=== PATIENT | male | born 1965 | race African-American/Black ===

== ENCOUNTER 2019-03-16 00:43 | Emergency (ER) | payer OTHER | END 2019-03-16 05:02 | disposition home or self-care (01) | LOC: JER 00:43 ==

== ENCOUNTER 2019-11-21 04:48 | Day surgery (SDC) | payer OTHER ==
[2019-11-02 12:51] VITALS: BMI 33.5
[2019-11-21] MEDS ORDERED: LIDOCAINE 1%-EPI 1:100,000 30 ML MDV IJ ONE (09:16)
--- NOTE | 2019-11-21 09:21 | HP ---
Satellite [facility] - Chief Complaint Chief Complaint: right knee pain - Past Medical History Allergies/Adverse Reactions: Allergies Allergy/AdvReac Type Severity Reaction Status Date / Time No Known Allergies Allergy Verified 11/21/19 08:30 - Current Medications Current Medications: Home Medications Medication Instructions Recorded Allopurinol 300 mg PO DAILY 11/02/19 Oxycodone HCl/Acetaminophen 1 tab PO Q6H #15 tablet MDD 4 11/21/19 [Percocet 5-325 mg Tablet] Satellite Physical Exam - Physical Examination Vital Signs: Vital Signs Period Temp Pulse Resp BP Sys/Bro Pulse Ox Last 24 Hr 98.4 F 76 20 145/86 99 General Appearance: Well Nourished, Well Developed, Alert & Oriented x3 ENT: Clear Lung: Normal air movement Extremities: Other (right knee- + swelling, + ttp, decr rom, + mcmurrays, nvi) Neurological: Intact, Alert, Oriented Satellite Impression/Plan - Impression/Plan Impression: right knee internal derangement Operative Procedure: right knee arthroscopy Date to be Performed: 11/21/19
[2019-11-21] MEDS ORDERED: MIDAZOLAM HCL 2 MG/2 ML SINGLE DOSE VIAL ONE (09:46)
[2019-11-21] MEDS ORDERED: PROPOFOL 20 ML ONE (09:48)
[2019-11-21] MEDS ORDERED: BUPIVACAINE HCL/PF 0.5% (5MG/ML) 10 ML VIAL IJ ONE (09:59)
[2019-11-21] MEDS ORDERED: LIDOCAINE 1%/EPI 1:100000 (20 ML MULTI DOSE VIAL) IJ ONE (09:59)
[2019-11-21] MEDS ORDERED: KETOROLAC TROMETHAMINE 30 MG/1 ML VIAL ONE (10:14)
[2019-11-21] MEDS ORDERED: DEXAMETHASONE SOD PHOSPHATE 4 MG/1 ML VIAL ONE (10:14)
--- NOTE | 2019-11-21 10:26 | SPEC ---
DATE OF OPERATION: 11/21/2019 PREOPERATIVE DIAGNOSIS: Right medial meniscal tear. POSTOPERATIVE DIAGNOSIS: Right medial meniscal tear. PROCEDURE: Right knee arthroscopy, partial medial meniscectomy. SURGICAL ATTENDING: Behzad Virgen MD COMPLIANCE REPRESENTATIVE DEALER: No clerical dentist assistant. ANESTHESIA: General with LMA. CLOSURE: 4-0 nylon. COMPLICATIONS: None. CONDITION: To recovery room in stable condition. DESCRIPTION OF OPERATIVE PROCEDURE: Patient was taken to the operating room on November 21, 2019. General anesthesia with LMA was administered by the anesthesiologist. The right lower extremity was prepped and draped in the usual sterile fashion. The medial and lateral infrapatellar portal sites were infiltrated with 1% Xylocaine with epinephrine. Both portals were then made with a 15 blade followed by a blunt trocar. The scope was placed in the lateral infrapatellar portal and up into the suprapatellar pouch. The knee was inflated with a cocktail of 10 mL of 1% Xylocaine, 10 mL of 0.5% Marcaine, and 20 mL of arthroscopic saline. This was allowed to sit in the knee for a few minutes to allow the anesthetic to work intraarticularly. The scope was placed in the lateral infrapatellar portal and up into the suprapatellar pouch. The pouch was visualized to be clean. The medial and lateral gutters were visualized to be clean. The undersurface of the patella and trochlea were visualized to be intact. With valgus stress on the knee, the medial compartment was entered. The medial meniscus was visualized, probed, and found to have a complex tear of the posterior horn. This was debrided back to smooth stable meniscal tissue using a meniscal biter and arthroscopic shaver. The medial femoral condyle was run and found to be intact as well as the medial tibial plateau. At 90 degrees, the ACL was visualized, probed, and found to be intact. In the figure 4 position, the lateral compartment was entered. The lateral meniscus was visualized, probed, and found to be intact. The lateral femoral condyle was run and found to be intact as was the lateral tibial plateau. The knee was irrigated with copious amounts of irrigation and then the fluid was drained. The inferomedial portal was closed then with 4-0 nylon. Prior to pulling the trocar from the lateral infrapatellar portal, 20 mL of 0.5% Marcaine was infused into the knee for postoperative analgesia. The trocar was then pulled and the incision was closed with 4-0 nylon suture. A sterile pressure dressing was applied. Patient awakened from anesthesia and transferred to recovery in stable condition. No complication. Estimated blood loss negligible. BEHZAD VIRGEN M.D. [id number]
[2019-11-21] MEDS ORDERED: ONDANSETRON 4 MG/2 ML VIAL IVPUSH PRN (10:31)
--- NOTE | 2019-11-21 10:44 | OP ---
Operative Note - Note: Operative Date: 11/21/19 ([facility]) Pre-Operative Diagnosis: right knee internal derangement Operation: right knee arthroscopy with PMM Post-Operative Diagnosis: Same as Pre-op Surgeon: Behzad Virgen Anesthesiologist/DECORATING SUPERVISOR: Radha Bailon Anesthesia: General, Local Specimens Removed: shavings
[2019-11-21] MEDS ORDERED: LACTATED RINGERS SOLUTION 1,000 ML IV SCH (10:45)
[2019-11-21] MEDS ORDERED: oxyCODONE HCL 5 MG TABLET PO ONE (12:11)
[2019-11-21 12:28] VITALS: PULSE 81; TEMP 98.1
[2019-11-21] MEDS ORDERED: ONDANSETRON 4 MG/2 ML VIAL ONE (12:59)
[2019-11-21] MEDS ORDERED: ONDANSETRON 4 MG/2 ML VIAL IVPUSH ONE (13:00)
[2019-11-21 14:45] VITALS: BP 136/80
--- NOTE | 2019-11-22 17:59 | PATH ---
Surgical Pathology Report Patient Name: ADRIEL ROA [facility]. Rec. #: [id number] /Age/Gender: 1965 (Age: 54) / M Account: [id number] Location: [facility] SURGICAL Taken: 11/21/2019 Received: 11/21/2019 Reported: 11/22/2019 Physicians: Behzad Virgen M.D. Specimen(s) Received KNEE SHAVINGS, RIGHT Clinical History Tear right knee Final Diagnosis KNEE SHAVINGS, RIGHT, ARTHROSCOPY: FRAGMENTS OF CARTILAGE, DENSE FIBROCONNECTIVE TISSUE, ADIPOSE TISSUE, AND SYNOVIUM. Electronically Signed Marielena Atkinson M.D. Gross Description Received in formalin, labeled "right knee shavings," is a 3.5 x 2.7 x 0.3 cm. aggregate of gomes-yellow soft tissue fragments. A residential sales representative portion is submitted in one cassette. /11/21/2019 saudi11/21/2019
== END 2019-11-21 14:40 | disposition home or self-care (01) ==
LOC: JASU-SURG 04:48
PROVIDERS: ATTEND Orthopaedic Surgery
PROC: 0SBC4ZZ Excision of Right Knee Joint, Percutaneous Endoscopic Approach (ICD-10-PCS; principal; 2019-11-21 09:30)
DX: S83.241A Other tear of medial meniscus, current injury, right knee, initial encounter (principal); X58.XXXA Exposure to other specified factors, initial encounter; Y93.9 Activity, unspecified; Y92.9 Unspecified place or not applicable
CPT/HCPCS: 94760

== ENCOUNTER 2020-05-27 00:01 | Emergency (ER) | payer OTHER ==
[2020-05-27 00:41] VITALS: BP 130/87; PULSE 89; TEMP 98.6; BMI 33.6
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
[2020-05-27] MEDS ORDERED: KETOROLAC TROMETHAMINE 30 MG/1 ML VIAL IM ONE (01:05)
[2020-05-27] MEDS ORDERED: METHOCARBAMOL 500 MG TABLET PO ONE (01:05)
[2020-05-27] MEDS ORDERED: KETOROLAC TROMETHAMINE 30 MG/1 ML VIAL ONE (01:07)
[2020-05-27] MEDS ORDERED: METHOCARBAMOL 500 MG TABLET ONE (01:07)
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
== END 2020-05-27 02:43 | disposition home or self-care (01) ==
LOC: JER 00:01
PROC: 3E0233Z Introduction of Anti-inflammatory into Muscle, Percutaneous Approach (ICD-10-PCS; principal; 2020-05-27)
DX: M54.2 Cervicalgia (principal); R51 Headache
CPT/HCPCS: 70450-TC; 72125-TC; 99284-25

== ENCOUNTER 2022-03-04 00:35 | Emergency (ER) | payer OTHER ==
[2022-03-04] MEDS ORDERED: SODIUM CHLORIDE 0.9% 500 ML INFUS.BAG IV ONE (01:48)
[2022-03-04] MEDS ORDERED: ACETAMINOPHEN 1000 MG/100 ML BAG IVPB ONE (01:48)
[2022-03-04 02:18] VITALS: BP 134/85; PULSE 79; TEMP 97; BMI 32.8
[2022-03-04] MEDS ORDERED: ACETAMINOPHEN INJECTION 100 ML IVPB ONE (02:49)
[2022-03-04 03:28] LABS: BASO % 0.3 % (0-2.0); EOS % 1.1 % (0-4.5); HEMOGLOBIN 13.9 GM/dL (11.7-16.9); MCH 28.5 pg (25.7-33.7); MCHC 33.1 g/dl (32.0-35.9); MEAN PLT VOLUME 8.9 fl (7.5-11.1); MONO % 6.4 % (3.8-10.2); NEUT % 61.2 % (42.8-82.8); PLATELET COUNT 177 10^3/uL (134-434); RBC 4.88 M/mm3 (4.00-5.60); RDW 14.2 % (11.9-15.9); WHITE BLOOD COUNT 6.4 K/mm3 (4.0-10.0)
[2022-03-04 03:46] LABS: CALCIUM 9.3 mg/dL (8.5-10.1)
[2022-03-04 03:47] LABS: ALBUMIN 3.9 g/dl (3.4-5.0); BLOOD UREA NITROGEN 20.3 mg/dL (7-18)
[2022-03-04 03:49] LABS: CREATININE 1.1 mg/dL (0.55-1.3)
[2022-03-04 03:51] LABS: BILIRUBIN,TOTAL 0.8 mg/dL (0.2-1)
[2022-03-04 04:11] LABS: PH,URINE 6.5 (5.0-8.0); URINE APPEARANCE CLEAR; URINE BILIRUBIN NEGATIVE (NEGATIVE); URINE COLOR YELLOW; URINE GLUCOSE (UA) NEGATIVE (NEGATIVE); URINE KETONE NEGATIVE (NEGATIVE); URINE LEUK ESTERASE NEGATIVE (NEGATIVE); URINE NITRITE NEGATIVE (NEGATIVE); URINE PROTEIN NEGATIVE (NEGATIVE)
== END 2022-03-04 05:14 | disposition home or self-care (01) ==
LOC: JER 00:35
PROC: 3E0333Z Introduction of Anti-inflammatory into Peripheral Vein, Percutaneous Approach (ICD-10-PCS; principal; 2022-03-04)
DX: N23 Unspecified renal colic (principal)
CPT/HCPCS: 36415; 74176-TC; 80053; 81003; 83690; 85025; 87086; 93005; 93010; 99285-25; C9803-CS; U0003; U0005

== ENCOUNTER 2022-09-06 01:03 | Emergency (ER) | payer OTHER ==
[2022-09-06 01:13] VITALS: TEMP 97.7; BMI 32.8
[2022-09-06] MEDS ORDERED: ACETAMINOPHEN 500 MG TABLET (FP) PO ONE (01:55)
[2022-09-06] MEDS ORDERED: ACETAMINOPHEN 325 MG TABLET (FP) ONE (02:46)
[2022-09-06 02:52] LABS: BASO % 0.6 % (0-2.0); EOS % 0.9 % (0-4.5); HEMATOCRIT 44.6 % (35.4-49); HEMOGLOBIN 14.5 GM/dL (11.7-16.9); LYMPH % 35.3 % (8-40); MCH 27.9 pg (25.7-33.7); MCHC 32.5 g/dl (32.0-35.9); MEAN PLT VOLUME 9.3 fl (7.5-11.1); MONO % 5.8 % (3.8-10.2); NEUT % 57.4 % (42.8-82.8); PLATELET COUNT 194 10^3/uL (134-434); RBC 5.19 M/mm3 (4.00-5.60); RDW 14.4 % (11.9-15.9)
[2022-09-06 03:01] LABS: INR 0.96 (0.83-1.09)
[2022-09-06] MEDS ORDERED: KETOROLAC TROMETHAMINE 30 MG/1 ML VIAL IVPUSH ONE (04:39)
[2022-09-06 04:41] LABS: ALBUMIN 3.9 g/dl (3.4-5.0); BLOOD UREA NITROGEN 16.4 mg/dL (7-18); CALCIUM 9.8 mg/dL (8.5-10.1); MAGNESIUM 2.1 mg/dL (1.8-2.4)
[2022-09-06 04:45] LABS: CREATININE 1.1 mg/dL (0.55-1.3)
[2022-09-06 04:46] LABS: BILIRUBIN,TOTAL 0.4 mg/dL (0.2-1); TOT PROT 7.1 g/dl (6.4-8.2)
[2022-09-06 04:49] LABS: N-TERMINAL BNP 5.2 pg/ml (5-125)
[2022-09-06] MEDS ORDERED: KETOROLAC TROMETHAMINE 30 MG/1 ML VIAL ONE (05:46)
[2022-09-06 08:42] VITALS: BP 138/90; PULSE 68; RESP 17
== END 2022-09-06 08:42 | disposition home or self-care (01) ==
LOC: JER 01:03
PROC: 3E033GC Introduction of Other Therapeutic Substance into Peripheral Vein, Percutaneous Approach (ICD-10-PCS; principal; 2022-09-06)
DX: R07.9 Chest pain, unspecified (principal)
CPT/HCPCS: 0241U-QW; 36415; 71046-TC-FY; 80053; 83735; 83880; 84484; 85025; 85379; 85610; 85730; 93005; 93010; 99285-25